=== PATIENT | female | born 1955 | race Asian ===

== ENCOUNTER 2018-11-06 14:46 | Emergency (ER) | payer OTHER ==
[~2018-11-06] VITALS: Ht 160 cm; Wt 69.4 kg
[2018-11-06 14:46] VITALS: TEMP 97.8
[2018-11-06 15:00] LABS: POTASSIUM 3.7 mmol/L (3.6-5.2)
[2018-11-06 15:05] LABS: PLATELET COUNT 212 K/uL (152-353)
[2018-11-06 16:16] VITALS: BP 139/78
[2018-11-06] MEDS ORDERED: ABILIFY20 MG PO (21:57)
[2018-11-06] MEDS ORDERED: AMLODIPINE BESYLATE PO (21:57)
[2018-11-06] MEDS ORDERED: DOCU100C10 PO (21:58)
[2018-11-06] MEDS ORDERED: VENL37.511 PO (21:59)
[2018-11-06] MEDS ORDERED: HYDR100TA PO (22:00)
[2018-11-06] MEDS ORDERED: TRILEPTAL300 MG PO (22:01)
[2018-11-06] MEDS ORDERED: TRAMADOL HYDROC50 MG PO (22:02)
[2018-11-06] MEDS ORDERED: TRAZODONE HYDRO50 MG PO (22:03)
== END 2018-11-06 16:18 | disposition home or self-care (01) ==
LOC: ED 14:46
PROVIDERS: Emergency Medicine
DX: R45.851 Suicidal ideations (principal); D64.89 Other specified anemias; E86.0 Dehydration; Z04.6 Encounter for general psychiatric examination, requested by authority
CPT/HCPCS: 80053; 81000; 85027; 93005; 99285

== ENCOUNTER 2018-12-04 19:44 | Emergency (ER) | payer OTHER ==
[~2018-12-04] VITALS: Ht 170.2 cm; Wt 68.5 kg
[~2018-12-04 19:44] MED LIST: ABILIFY 10MG TAB PO; ABILIFY20 MG PO; AMLODIPINE BESYLATE PO; CLON0.1T16 PO; DOCU100C10 PO; EFFEXOR 150 MG PO; HYDR100TA PO; MAGNSUS68 PO; RISP0.25 PO; RISP1TAB PO; TRAMADOL HYDROC50 MG PO; TRAZ50TA36 PO; TRAZODONE HYDRO50 MG PO; TRILEPTAL300 MG PO; TYLENOL325 MG PO; VENL37.511 PO; VITAMIN D50000 UNIT PO
[2018-12-04 20:50] LABS: PLATELET COUNT 210 K/uL (152-353)
[2018-12-04 20:55] LABS: POTASSIUM 3.4 mmol/L (3.6-5.2)
[2018-12-04 21:25] VITALS: BP 164/89; TEMP 97.7
[2018-12-05] MEDS ORDERED: VITAMIN D32000 UNI1 PO (00:06)
[2018-12-05] MEDS ORDERED: CLONIDINE HYDR0.1 M2 PO (00:08)
== END 2018-12-04 21:30 | disposition other institution (70) ==
LOC: ED 19:44
PROVIDERS: Family Medicine
DX: E87.6 Hypokalemia (principal); D64.89 Other specified anemias; F41.8 Other specified anxiety disorders; Z04.6 Encounter for general psychiatric examination, requested by authority
CPT/HCPCS: 80053; 81000; 85027; 93005; 99285